=== PATIENT | male | born 1945 | race Caucasian/White ===

== ENCOUNTER 2022-08-20 13:35 | Outpatient (REF) | payer OTHER, SELFPAY ==
[2022-08-20 15:33] LABS: Vitamin B12 1249 pg/mL (200-900)
== END 2022-08-20 13:36 | disposition home or self-care (01) ==
LOC: HO.LAB 13:35
PROVIDERS: PCP Internal Medicine; Visit Provider Psychiatry & Neurology Neurology
DX: G30.9 Alzheimer's disease, unspecified (principal); F02.80 Dementia in other diseases classified elsewhere, unspecified severity, without behavioral disturbance, psychotic disturbance, mood disturbance, and anxiety
CPT/HCPCS: 36415; 82607

== ENCOUNTER 2025-04-25 09:49 | Outpatient (AMB) | payer OTHER, SELFPAY ==
--- NOTE | 2025-04-25 10:00 | A.OFFVIS_ITS ---
Intake Visit Reasons: 6m dementia HPI Comments Details: The patient is an 79-year-old male presenting with memory issues. He experiences challenges related to short-term memory retention, where he regularly forgets where to place items shortly after using them. This situation leads to fr ustration but is being actively managed with a current medication plan, which involves the introduction of a second pill to assist with memory. There is no mention of when the memory loss began, but it appears to have been developing over time. Additionally, the patient?s anxiety is described as stable under his current medication. No new onset or worsening of anxiety symptoms has been reported. He maintains one refill of his sertraline medication and plans for a follow-up visit in two months for required adjustments. Review of Systems Narrative - Cognitive: Reports issues with short-term memory retention. - Psychological: Denies anxiety issues when asked. Physical Exam Neuro Other: Mental Status: Alert and oriented to person, place, and time. Normal attention. Normal spontaneous speech, fluency, and comprehension. Cranial Nerves: CN II: Visual rojas full to confrontation, visual acuity intact. CN III, IV, : Pupils equal, round, reactive to light and accommodation. Extraocular movements are normal. CN V: Facial sensation is normal. CN VII: Facial movements symmetrical. CN VIII: Hearing intact to bedside conversation is normal. CN IX, X: Palate elevates symmetrically. CN XI: Shoulder shrug and head turn symmetrical. CN XII: Tongue midline without atrophy or fasciculations. Motor: Bulk and tone normal in all extremities. No significant muscle weakness in arms and legs. No drift. Reflexes: Deep tendon reflexes 2+ and symmetric. Plantar response down-going bilaterally. Coordination: Vmulwy-zz-pfqp and tkgt-ug-kkin testing normal. No dysmetria. Gait and Station: No obvious gait abnormality. No ataxia or instability. Extrapyramidal: Full facial expressions and blinking. No rigidity. Movements are appropriate with no tremor or abnormality. Speech: Normal; no dysarthria or tremor. Assessment & Plan Assessment & Plan (1) Alzheimer's dementia: Comment: MRI brain WO at [facility] in Apr 2022: mild to mod diff atrophy. Code(s): G30.9 - Alzheimer's disease, unspecified; F02.80 - Dementia in other diseases classified elsewhere, unspecified severity, without behavioral disturbance, psychotic disturbance, mood disturbance, and anxiety Category: Medical Qualifiers: Alzheimer's disease onset: late onset Dementia severity: mild Dementia behavioral or psychological symptom: with anxiety Qualified Code(s): G30.1 - Alzheimer's disease with late onset; F02.A4 - Dementia in other diseases classified elsewhere, mild, with anxiety Plan Impression: a: Alzheimer type dementia b; Anxiety Rec: a: Start donepezil 5mg daily b: Sertraline 25mg a day 79 years old man with [id number] Alzheimer dementia with anxiety. Anxiety now is better with sertraline. He was getting more more forgetful. Donepezil 5 mg was started and plan was to increase the dose to 10 mg at next visit and after that maybe add small dose of memantine 5 mg twice a day. He was advised to be continued to be socially and physically active. Medications: New donepezil 5 mg PO DAILY 60 tabs 0RF Coding Level of Care Code Est Pt Level 4 (78779) Diagnoses Mild late onset Alzheimer's dementia with anxiety G30.1; F02.A4 Alzheimer's disease onset: late onset Dementia severity: mild Dementia behavioral or psychological symptom: with anxiety
--- OUTSIDE RECORDS SUMMARY | 2025-04-25 11:50 | XMS_ITS | Continuity of Care Document ---
Author Organization [facility] [address] [place] [address] Phone [phone] Care Team Providers Care Consumer Educator Name Role Phone Joe Sanders M.D. Care Team Informat ion Personnel Technician [phone] Problems Active Problems Provider Date Alzheimer's disease Tigre Parikh M.D. Onse t: 02/22/2023 Chronic kidney disease stage 3 Tigre Parikh M.D. Onset: 02/22/2023 Constipation Tigre Parikh M.D. Onset: 0 02/22/2023 Erectile dysfunction Tigre Parikh M.D. Ons et: 02/22/2023 Essential hypertension Tigre Parikh M.D. O nset: 02/22/2023 Hyperlipidemia Tigre Parikh M.D. Onset: 0 02/22/2023 Hypothyroidism Tigre Parikh M.D. Onset: 0 02/22/2023 Type 2 diabetes mellitus Tgire Parikh M.D. Onset: 02/22/2023 Hyperglycemia Tigre Parikh M.D. Onset: 0 02/22/2023 Urgent desire to urinate Tigre Parikh M.D. Onset: 02/22/2023 Social History Type Date Description Comments Sex Male Sex Unknown Lives With Spouse ETOH Use Occasionally con sumes alcohol Tobacco Use Start: Unknown End: Unknown Patient is a former smoker smoked pipe for a few years Allergies and adverse reactions Description No Known Drug Allergies Medications Active Medications SIG Qnty Indications Order ing Provider Date Accu-Chek Softclix LancetsMisc use to test blood sugars 3 times a day 300units Tigre Parikh M.D. 12/05/2024 Insulin Glargine-Wqhn007Butw /ML Solution Pen-Inject inject 6 units per day 15ml Tigre Parikh M.D. 07/18/2024 Pentips Generic Pen [place] [id number] X 6 mm Misc use daily 100units Tigre Parikh M.D. 07/12/2024 Freestyle Lite TestStrips Use as directed for testing blood sugars 2 to 3 times daily 300units E11.9 Tigre Parikh M.D. 04/12/2024 Trulicity1.5mg/0.5ML Solution Auto-Inject Inject The Contents Of 1 Pen Under The Skin Once Every Week 6units E11.9 Tigre Parikh M.D. 01/18/2024 Freestyle Kasia 3/Sensor/Glucose Monitoring Cnqlda8Lgdxof Misc as directed 6units Tigre Parikh M.D. 02/22/2023 Uplabzdzgf63gv Tablets Take 1 tablet daily Sanna Granados M.D. Hydrochlorothiazide2 5mg Tablets Take 1 tablet daily Demetria Sosa. Dookfdbsi81qi Tablets Take 1 Tablet By Mouth Two Times A Day 180tabs Tigre Parikh M.D. Wvpjuarvnnp57ju Tablets Take 1 tablet daily Demetria Sosa. Fluticasone Igjxebencd61zud/Act Suspension Sanna Granados M.D. Metformin CSN2831si Tablets Take 1 tablet twice daily 180tabs Tigre Parikh M.D. Sertraline BTC33xt Tablets Take 1/2 tablet daily Alessandro Foreman MD Sildenafil Voaicff360qu Tablets Ricardo Sosa. History Medications Insulin Glargine-Ktqh858Ipox/ML Solution Inject 10 Units In Am 10ml Tigre Parikh M.D. 07/12/2024 - 07/18/2024 Vital Signs Date Vital Result Comment 03/14/2025 1:27pm BP Systolic 130 mmHg BP Diastolic 80 mmHg Heart Rate 72 /min Height 65 inches 5'5 Weight 124.12 lb BMI (Body Mass Index) 20.7 kg/m2 Results Test Acquired Date Facility Test Result H/L Range Note Hemoglobin A1c 03/14/2025 Inhouse Hemoglobin A1c 7.6% Glucose Fingerstick 03/14/2025 Inhouse Glucose Fingerstick 206 Glucose Fingerstick 11/08/2024 Inhouse Glucose Fingerstick 249 Hemoglobin A1c 11/08/2024 Inhouse Hemoglobin A1c 8.7% Glucose Fingerstick 07/12/2024 Inhouse Glucose Fingerstick 323 Hemoglobin A1c 07/12/2024 Inhouse Hemoglobin A1c 8.8% Glucose Fingerstick 04/04/2024 Inhouse Glucose Fingerstick 318 Hemoglobin A1c 04/04/2024 Inhouse Hemoglobin A1c 8.3 % Hemoglobin A1c 12/28/2023 Inhouse Hemoglobin A1c 7.4% Glucose Fingerstick 12/28/2023 Inhouse Glucose Fingerstick 268 Glucose Fingerstick 09/28/2023 Inhouse Glucose Fingerstick 363 Hemoglobin A1c 09/28/2023 Inhouse Hemoglobin A1c 8.5% TSH With Reflex To FT4 05/31/2023 [facility] TSH With Reflex To FT4 1.95 uIU/mL (0.4-4. 2) Glucose Fingerstick 05/31/2023 Inhouse Glucose Fingerstick 277 Hemoglobin A1c 05/31/2023 Inhouse Hemoglobin A1c 8.0% Urinalysis Complete 02/22/2023 [facility] Appear/Color LIGHT YELLOW 1 SP. [place] 1.008 (1.002- 1.030) Urine PH 6.5 (5.0-8. 0) Urine Albumin NEGATIVE (Neg) Urine Glucose 4+ Abnormal (Neg) Urine Ketones NEGATIVE (Neg) Urine Bilirubin NEGATIVE (Neg) Urine Hemoglobin NEGATIVE (Neg) Urine Nitrite NEGATIVE (Neg) Urine Leukocyte NEGATIVE (Neg) Urobilinogen NORMAL mg/dL (Norm) Urine WBCs NONE SEEN /HPF (0-5) Urine RBCs NONE SEEN /HPF (0-3) Bacteria SLIGHT HPF Abnormal (Neg) Squamous Epith <1 /HPF (0-8) Urinary Microalbumin 02/22/2023 [facility] Micro-Albumin <12.0 mg/L (<20) 2 Malb/Creat Ratio Unable to calcul <SEE NOTE> MG/GM (0-20) 3 Urine Creat For Micro Albumin 40.9 mg/dL Glucose Fingerstick 02/22/2023 Inhouse Glucose Fingerstick 282 Hemoglobin A1c 02/22/2023 Inhouse Hemoglobin A1c 7.6% 1 CLEAR 2 The urine microalbum in test is designed to monitor renal function. When screening for Bence Gil proteinuria, urine electrophoresis is recommended. 3 Unable to calculate Medical Devices Description No Information Available Encounters Type Date Location Provider Dx Diagnosis Office Visit 03/14/2025 1:30p Main Office Tigre Parikh M.D. E11.9 Type 2 diabetes mellitus without complications Assessments Date Code Description Provider 03/14/2025 E11.9 Type 2 diabetes mellitus without complications Tigre Parikh M.D. Plan of Treatment Future Appointment(s):* 07/25/2025 1:00 pm - Tigre Parikh M.D. at Main Office 04/04/2024 - Tigre Parikh M.D.* E11.9 Type 2 diabetes mellitus without complications Functional Status Description No Information Available Mental Status Description No Information Available Referrals Refer to Dr Reason for Referral Status Appt Tigre Agudelo M.D. Created [address] [place] [address] Drive [address] [place] [address] [phone] Tigre Parikh M.D. Created [address] [place] [address] Drive [address] [place] [address] [phone]
== END 2025-04-25 10:09 | disposition home or self-care (01) ==
LOC: HO.HSM 09:50
PROVIDERS: PCP Internal Medicine; Referring Provider Internal Medicine; Visit Provider Psychiatry & Neurology Neurology
DX: G30.1 Alzheimer's disease with late onset (principal); F02.A4 Dementia in other diseases classified elsewhere, mild, with anxiety
CPT/HCPCS: 99214

== ENCOUNTER → 2025-04-25 09:49 | Outpatient (BNVA) | payer OTHER, SELFPAY | PROVIDERS: PCP Internal Medicine; Referring Provider Internal Medicine; Visit Provider Psychiatry & Neurology Neurology | DX: G30.1 Alzheimer's disease with late onset (principal); F02.A4 Dementia in other diseases classified elsewhere, mild, with anxiety | CPT/HCPCS: 99212 ==